=== PATIENT | male | born 1955 | race Caucasian/White ===

== ENCOUNTER 2017-03-02 21:20 | Inpatient (IN) | payer MEDICARE, MEDICAID ==
[~2017-03-02] VITALS: Ht 175.3 cm; Wt 73.5 kg
--- NOTE | 2017-03-02 21:20 | NUR ---
Patient was BIBA at this time.
[2017-03-02 21:26] VITALS: BP 104/68
--- NOTE | 2017-03-02 21:45 | NUR ---
61Y/ M PT. AGUSTÍN FROM [facility] FOR FEVER 99.9, NOW 98.1, DECREASE O2SAT LOW 90, NOW 96%, AND CONGESTION . HX: DEMENTIA AND SEIZURE. AAO X1 TO SELF, UNABLE TO AMBULATE. RESPIRATIONS BILATERAL LUNGS SLIGHLY RHONCHI. SKIN WARM AND DRY. NO C/O PAIN AT THIS TIME. BED SIDERAILS UP. BED AT LOWEST POSITION. VSS, NO S/SX OF DISTRESS. ER MD MADE AWARE OF PT. STATUS.
--- NOTE | 2017-03-02 21:49 | NUR ---
Patient taken to bed 03 via gurney per EMS.
--- NOTE | 2017-03-02 22:18 | NUR ---
PA student at bedside to evaluate patient.
--- NOTE | 2017-03-02 22:27 | NUR ---
Dr. Hernandez evaluating patient at bedside.
[2017-03-02] MEDS ORDERED: NACL 0.9% 2,000 ML IV ONE (22:35)
--- NOTE | 2017-03-03 01:00 | NUR ---
Patient appears to be resting comfortably in bed. Vital Signs within normal limits. Respirations even and unlabored.
[2017-03-03] MEDS ORDERED: ACETAMINOPHEN 325 MG TAB PO PRN (01:15)
[2017-03-03] MEDS ORDERED: HYDROcodone/APAP 5/325 MG 1 TAB TAB PO PRN (01:15)
[2017-03-03] MEDS ORDERED: ONDANSETRON 4 MG/2 ML VIAL IVP PRN (01:15)
[2017-03-03] MEDS ORDERED: cefTRIAXone 1,000 MG VIAL ONE (01:31)
[2017-03-03 01:55] VITALS: BP 141/70
--- NOTE | 2017-03-03 01:55 | NUR ---
RECEIVED PT FROM ER VIA JASVIR, INITIAL ASSESSMENT STARTED, PT IS AAOX1, CONFUSED, UNABLE TO FOLLOW COMMANDS AND MAKE NEEDS KNOWN. FLACC 0. NO S/S OF SOB/DISTRESS NOTED, BREATHING EVEN AND UNLABORED, RHONCHI LUNG SOUNDS, ON RA. NO S/S OF CHEST PAIN, SR ON SOURCING ANALYST, SOFT ABDOMEN WITH ACTIVE BOWEL SOUNDS, INCONTINENT WITH B&B'S. AFEBRILE, SKIN IS WARM AND DRY TO TOUCH, SACRAL REDNESS NOTED, PICTURE TAKEN, GENERALIZED WEAKNESS TO ALL EXTREMITIES, IV TO LEFT FOREARM 20GA, INTACT AND PATENT, SL. VSS. PLACED PT ON SAFETY PRECAUTION WITH BED IN LOW POSITION, CALL LIGHT WITHIN REACH, WILL CONTINUE TO MONITOR.
[2017-03-03] MEDS: NACL 0.9% 1,000 ML IV SCH ×3 (02:00→20:17)
--- NOTE | 2017-03-03 02:00 | NUR ---
Patient will be admitted to care of [facility]. Admited to ICU 3. Will go to roOM 2. Belongings list completed. Report to STEPHANI VERMA.
[2017-03-03 04:00] VITALS: BP 141/55
--- NOTE | 2017-03-03 04:00 | NUR ---
PT'S O2 DROPPED TO 88%, PUT ON O2 AT 2L VIA NC, O2 SAT INCREASED TO 95%. POSITION CHANGED FOR OFFLOAD PRESSURE.
--- NOTE | 2017-03-03 05:26 | NUR ---
PT STARTS SHAKING, TEMP 101.9F, HR 136, TYLENOL GIVEN, WILL REASSESS IN 15 MINS.
--- NOTE | 2017-03-03 05:52 | NUR ---
RECHECK PT, TEMP 100.2F, HR 130, BP 154/73, RR 15, O2 SAT 91 %, SHAKING STOPPED, WILL CONTINUE TO MONITOR.
--- NOTE | 2017-03-03 06:15 | NUR ---
CALLED PT'S YADIEL APODACA TO CLARIFY IF SHE STILL WANT TO PUT PATIENT ON DNR, CONFIRMED WITH DNR STATUS.
--- NOTE | 2017-03-03 06:20 | NUR ---
PAGED DR. PARKER REGARDING PT'S CODE STATUS, AND CURRENTLY CONDITION WITH HR 135, TEMP 100.2F, DR. PARKER WILL PUT NEW ORDER IN, AND CAME TO SEE PATIENT.
[2017-03-03] MEDS ORDERED: DILTIAZEM 25 MG/5 ML VIAL IVP ONE (06:25)
[2017-03-03] MEDS ORDERED: NACL 0.9% 1,000 ML IV ONE (06:25)
--- NOTE | 2017-03-03 06:30 | NUR ---
CARDIZEM GIVEN ORDERED, WILL CONTINUE TO MONITOR FOR HR.
[2017-03-03] MEDS ORDERED: LORazepam 2 MG/ML VIAL IVP SCH (06:40)
[2017-03-03] MEDS ORDERED: ALBUTEROL SULFATE/IPRATROPIU 3 ML SOL IH PRN ×2 (07:10→07:35)
--- NOTE | 2017-03-03 07:15 | NUR ---
REPORT GIVEN TO VIC RN AT BEDSIDE FOR CONTINUE OF CARE. PT'S HR 113, TEMP 99.8F.
--- NOTE | 2017-03-03 07:30 | NUR ---
RECEIVED PT FROM LUCI STYLES. PT DOES NOT OPEN EYES, UNABLE TO FOLLOW COMMANDS.MUMBLING. BEDSIDE MONITOR SHOWS ST. PT ON O2 NC 2L/MIN, NO S/S OF RESPIRATORY DISTRESS NOTED. LUNG SOUNDS CLEAR. ABDOMEN SOFT , NONTENDER WITH HYPOACTIVE BOWEL SOUNDS. WEAKNESS TO ALL EXTREMITIES, IV TO LEFT FA # 20 RUNNING 0.9 NS AT 80 ML/HR. HOB ELEVATED 30 DEGREES WITH LOW BED POSITION. REORIENTED PT UNIT ENVIRONMENT. CALL LIGHT IN REACH, WILL CONTINUE TO MONITOR.
--- NOTE | 2017-03-03 07:30 | NUR ---
PT NOTED TO HAVE DIARRHEA AND VOIDED ON THIEN. JUDIE CARE GIVEN. LINENS CHANGED. RETURN PT TO COMFORTABLE POSITION
--- NOTE | 2017-03-03 07:40 | NUR ---
IN TO ASSESS PT.UPDATED PT CONDITION. PER . INSERT NG TUBE. WILL CARRY OUT THIS ORDER.
[2017-03-03 08:00] VITALS: BP 151/89
--- NOTE | 2017-03-03 08:30 | NUR ---
AT BEDSIDE TO SEE PT. ALL QUESTION ANSWERED
--- NOTE | 2017-03-03 08:35 | NUR ---
NG TUBE #14 INSERTED TO RIGHT NARES, ASPIRATED 10 ML LIGHT BROWN GASTRIC CONTENT .TWO RNS VERIFIED PLACEMENT. PT NPO, USE NG FOR MEDICATION ONLY PER DR. PARKER.
[2017-03-03] MEDS ORDERED: NACL 0.9% 1,000 ML IV SCH (08:40)
[2017-03-03] MEDS: PANTOPRAZOLE 40 MG INJ VIAL IVP SCH (08:49)
[2017-03-03] MEDS: LACTOBACILLUS RHAMNOSUS GG 1 EACH CAP PO SCH (08:50)
[2017-03-03] MEDS: DILTIAZEM 30 MG TAB PO SCH ×3 (08:50→17:00)
[2017-03-03] MEDS ORDERED: DOCUSATE SODIUM 100 MG GELCAP PO SCH (09:00)
--- NOTE | 2017-03-03 09:17 | NUR ---
PATIENT HAS BEEN SCREENED AND CATEGORIZED HIGH NUTRITION RISK. PATIENT WILL BE SEEN WITHIN 1-2 DAYS OF ADMISSION. 03/03/17-03/04/[address]
--- NOTE | 2017-03-03 10:15 | NUR ---
TECH AT BEDSIDE TO DO ECHO
--- NOTE | 2017-03-03 11:00 | NUR ---
WOUND RN AT BEDSIDE TO ASSESS. WILL F/U WITH ORDERS
--- NOTE | 2017-03-03 11:15 | NUR ---
PT O2 SAT DROPPED TO 70S. PT APPEARS TO BE IN NO DISTRESS. APPEARS TO BE MOUTH BREATHER. NOTIFIED RT. PT STAT RAISE BACK UP TO 90S WITH NO INTERVENTION WHEN PT WOKE UP. WILL NOTIFY RT OF ASSESSMENT
--- NOTE | 2017-03-03 11:20 | NUR ---
WOUND CARE EVALUATION NOTES: REASON FOR EVALUATION: SACRAL REDNESS COMPLETE SKIN ASSESSMENT DONE ON THIS 61 Y/O MALE PATIENT [facility] TO [facility], WITH INITIAL DIAGNOSIS OF URINARY TRACT INFECTION. PAST MEDICAL HISTORY INCLUDE ALZHEIMER'S DEMENTIA, DYSPHAGIA AND MUSCLE WEAKNESS. ALL ABOVE INFORMATION WAS OBTAINED FROM THE ADMISSION H&P. LABS ARE WBC 8.6, H/H 13.5/41.2, GLUCOSE 102 AND ALBUMIN 3.1. CURRENT MEDS INCLUDE CEFTRIAXONE, ATIVAN AND NORCO. PATIENT IS LETHARGIC AT THIS TIME, NON VERBAL AND UNABLE TO FOLLOW SIMPLE COMMAND. ON 02 PER NASAL CANNULA. SKIN WARM TO TOUCH WNL, TOENAILS WNL, NO EDEMA, WITH FINE HAIR GROWTH AND +3 BILATERAL PEDAL PULSES. URINE AND BOWEL INCONTINENT. NEEDS MAX ASSISTANCE IN TURNING. INITIAL PLAN OF CARE AND PRESSURE PREVENTIVE MEASURES DISCUSSED WITH PATIENT'S YADIEL, ABLE TO VERBALIZE UNDERSTANDING. INTEGUMENTARY: LEFT BUTTOCK - ST II RIGHT BUTTOCK - ST II PERIAREA - RED AND MOIST DUE TO URINE AND BOWEL INCONTINENCE BILATERAL HEELS BLANCHABLE REDNESS RECOMMENDATIONS: 03/03/17 1130 -CLEANSE R/L BUTTOCKS AND PERIAREA WITH MILD SOAP AND WATER, PAT DRY, APPLY Z GUARD BIDWC AND PRN WITH SOILING. LEAVE OPEN TO AIR -PAINT BILATERAL HEELS WITH SKIN PREP WIPES BIDWC AND LEAVE OPEN TO AIR -TURN AND REPOSITION PATIENT Q2H TO LEFT AND RIGHT SIDE ONLY TO OFFLOAD SACRALCOCCYX AND BILATERAL BUTTOCKS -ASSESS AND MONITOR SKIN CONDITION DURING POSITION CHANGE, PLEASE PAY PARTICULAR ATTENTION TO SACRALCOCCYX, ELBOWS AND HEELS -OFFLOAD BILATERAL HEELS BY PLACING PILLOWS UNDER CALVES AT ALL TIMES, UNLESS OTHERWISE CONTRAINDICATED -KEEP SKIN CLEAN AND DRY AT ALL TIMES. RECOMMENDATIONS DISCUSSED WITH PRIMARY RN AND RESIDENT PHYSICIAN, DR. HOPKINS. WILL FOLLOW UP PATIENT Q 7 DAYS AND PRN. PLEASE CONTACT [facility] FOR ANY CONCERNS, QUESTIONS AND CHANGES IN SKIN CONDITION.
--- NOTE | 2017-03-03 11:30 | NUR ---
ST AT BEDSIDE FOR SWALLOW EVAL. WILL F/U
[2017-03-03] MEDS: ALBUTEROL SULFATE/IPRATROPIU 3 ML SOL IH SCH ×4 (11:34→23:24)
--- NOTE | 2017-03-03 11:48 | NUR ---
SOBIA NOTE SPOKE WITH SOBIA ONEIL PH# [phone] AND SHE SAID REVIEWS SHOULD GO TO [facility] ONLY AND THAT PATIENT SHOULD BE SEEN BY [facility]. SENT INITIAL REVIEW TO [facility] FAX# [phone] THAD PH# [phone]. SOBIA KAUFMAN.
--- NOTE | 2017-03-03 11:53 | NUR ---
SODA DRIER FEEDER note (bedside swallow evaluation completed, please see report for details) [id number]. Bedside swallow evaluation completed, please see report for details. SODA DRIER FEEDER provided education regarding purpose of evaluation and rationale for recommendations to pt and pt's spouse (at bedside). Pt's spouse verbalized understanding. Pt did not appear to benefit from education provided. Recommend: 1) strict NPO (oral cares only) 2) consider alternative method(s) of nutrition/hydration/medication vs comfort measures, as appropriate 3) SODA DRIER FEEDER to f/u for continued assessment of pt's ability to take PO safely (2-3 x week for 2 weeks as pt willing/able to participate safely), as appropriate G-codes: [id number] [id number] [facility] NOMS level 1. PVE for discussion with RNs prior to and following evaluation completion.
[2017-03-03 12:00] VITALS: BP 89/55
--- NOTE | 2017-03-03 12:42 | NUR ---
03/03/17 RD INITIAL ASSESSMENT COMPLETED PLEASE REFER TO NUTRITION ASSESSMENT UNDER CARE ACTIVITY FOR ESTIMATED NUTRITIONAL NEEDS. 1. RECOMMEND WHEN MEDICALLY FEASIBLE, RESUME ORAL DIET: REGULAR WITH TEXTURE PER ST RECOMMENDATIONS 2. RD TO FOLLOW-UP 2-3 DAYS; HIGH RISK SOFIA DAY RD
[2017-03-03] MEDS ORDERED: Z-GUARD PASTE TP SCH (13:00)
[2017-03-03] MEDS ORDERED: Z-GUARD PASTE TP PRN (13:00)
[2017-03-03] MEDS ORDERED: PROBIOTIC SCREEN 1 EA MISC MC PRN (13:00)
--- NOTE | 2017-03-03 13:30 | NUR ---
NOTIFY RT OF PERSISTENT O2 SAT IN THE 70S. INCREASED O2 TO 4 L, AWAITING RT TO ASSESS
[2017-03-03] MEDS ORDERED: MELATONIN3 MG PO (13:43)
[2017-03-03] MEDS ORDERED: NAMENDA10 MG PO (13:43)
[2017-03-03] MEDS ORDERED: TYLENOL325 M1 PO (13:43)
[2017-03-03] MEDS ORDERED: MILK OF MA400 MG/5 M PO (13:43)
[2017-03-03] MEDS ORDERED: MULTI VITAMIN W PO (13:43)
[2017-03-03] MEDS ORDERED: DOCUSATE SODIU PO (13:43)
[2017-03-03] MEDS ORDERED: LACTULOSE10 GM/152 PO (13:43)
[2017-03-03] MEDS ORDERED: KLONOPIN0.5 MG PO (13:43)
--- NOTE | 2017-03-03 13:49 | NUR ---
PULSE OX CHANGED, WHEN ADEQUATE WAVEFORM IS SHOWING SPO2 95-96% ON 4L NASAL CANNULA. NO SIGNS OF SOB OR RESPIRATORY DISTRESS NOTED. NO CYANOSIS NOTED. WILL CONTINUE TO MONITOR.
--- NOTE | 2017-03-03 14:00 | NUR ---
PT AT BEDSIDE FOR EVALUATION, WILL F/U WITH ORDER
--- NOTE | 2017-03-03 14:27 | NUR ---
[address] LY THAT PER THAD AT [facility] DR LY TO ASSUME CARE OF PT. DR PARKER AWARE OF PENDING TRANSFER OF SERVICE TO [facility] TOMORROW.
[2017-03-03 16:00] VITALS: BP 97/54
--- NOTE | 2017-03-03 16:00 | NUR ---
NOTED TO HAVE LARGE AMOUNT OF URINE AND DIARRHEA. FOURTH ROUND OF DIARRHEA THIS SHIFT. BROWNISH GREEN LIQUID STOOL NOTED. JUDIE CARE GIVEN. BEDSHEETS CHANGED. PT RETURN TO PROPER ALIGNMENT. PT RESTING COMFORTABLY.
--- NOTE | 2017-03-03 17:00 | NUR ---
PT'S AT BEDSIDE. UPDATED WITH PROGRESS. ALL QUESTIONS ANSWERED.
--- NOTE | 2017-03-03 17:05 | NUR ---
BP MEDICATION HELD D/T LOW BP. 88/65. WILL CONTINUE TO MONITOR
--- NOTE | 2017-03-03 19:00 | NUR ---
RECEIVED PT AWAKE ON A BED FROM ICU NURSES ACCOMPANIED BY , PT IS CONFUSED, WITH O2 VIA NC AT 4LPM, ON TELE MONITORING, WITH SCDS ON, IV AT LEFT FOREARM 20G INFUSING FLUIDS WELL. WITH NGT AT RIGHT NARES. TRANSFERRED PT TO WOUND CARE BED AT ROOM 123A. ENDORSED PT TO STEPHANI ZAMARRIPA IN STABLE CONDITION.
--- NOTE | 2017-03-03 19:25 | NUR ---
RECEIVED REPORT FROM DAY SHIFT NURSE. PT IS AWAKE, CONFUSED, AT BEDSIDE, FLACC 0. ON NASAL CANNULA AT 4LPM, HAS NO S/S OF RESPIRATORY DISTRESS/DISCOMFORT NOTED. ON WOUND BED CARE. IV SITE IS PATENT AND INTACT. RIGHT NARE NGT NOTED. PLAN OF CARE DISCUSSED, UNABLE TO VERBALIZE UNDERSTANDING. SAFETY MEASURES CHECKED, CALL LIGHT WITHIN REACH. WILL CONTINUE TO MONITOR
[2017-03-03 20:00] VITALS: BP 93/65
--- NOTE | 2017-03-03 20:00 | NUR ---
REPOSITIONED THE PATIENT. V/S CHECKED AND STABLE. CALL LIGHT WITHIN REACH.
--- NOTE | 2017-03-03 22:00 | NUR ---
REPOSITIONED THE PATIENT. NOT IN DISTRESS. SAT O2= 94%. NO SOB NOTED.
[2017-03-04] VITALS: BP 153/94
--- NOTE | 2017-03-04 | NUR ---
V/S CHECKED AND STABLE, FLACC-0, NO S/S OF RESPIRATORY DISTRESS/DISCOMFORT NOTED.
[2017-03-04] MEDS: Z-GUARD PASTE TP SCH ×2 (01:21→13:00)
--- NOTE | 2017-03-04 02:28 | NUR ---
EYES CLOSED, BREATHING EVEN AND UNLABORED. ON NASAL CANNULA, HAS NO S/S OF RESPIRATORY DISTRESS/DISCOMFORT NOTED.
[2017-03-04] MEDS: ALBUTEROL SULFATE/IPRATROPIU 3 ML SOL IH SCH ×6 (03:31→23:16)
[2017-03-04 04:00] VITALS: BP 147/65
--- NOTE | 2017-03-04 04:00 | NUR ---
V/S CHECKED AND STABLE. STA O2 MAINTAINED TO > 92%. NO DISTRESS NOTED. CALL LIGHT WITHIN REACH. IV FLUID INFUSING WELL.
[2017-03-04] MEDS: NACL 0.9% 1,000 ML IV SCH ×3 (04:59→20:04)
--- NOTE | 2017-03-04 05:53 | NUR ---
LOOSE BOWEL MOVEMENT NOTED. LINEN CHANGED. GOWN CHANGED. AM CARE DONE. REPOSITIONED THE PT. NO DISTRESS NOTED. MAINTAINED SAT O2 >92%.
--- NOTE | 2017-03-04 07:27 | NUR ---
REPORT GIVEN TO DAY SHIFT NURSE FOR CONTINUITY OF CARE. PT IN STABLE CONDITION.
--- NOTE | 2017-03-04 07:29 | NUR ---
RECEIVED REPORT FROM NIGHT RN. PT RESTING IN BED. NO S/S OF ACUTE DISTRESS. AAOX1. IV SITE PATENT AND INTACT. NG-TUBE NOTED TO RIGHT NARE PATENT. FLACC-0. ON O2 4L NC. REDNESS NOTED TO HEELS AND BUTTOCKS. CALL LIGHT WITHIN REACH. SAFETY MEASURES ENSURED. WILL CONTINUE TO MONITOR.
[2017-03-04 08:00] VITALS: BP 99/53
[2017-03-04] MEDS: DILTIAZEM 30 MG TAB PO SCH (09:00)
[2017-03-04] MEDS: PANTOPRAZOLE 40 MG INJ VIAL IVP SCH (09:46)
[2017-03-04] MEDS: LACTOBACILLUS RHAMNOSUS GG 1 EACH CAP PO SCH (09:46)
--- NOTE | 2017-03-04 09:57 | NUR ---
PT PULLING OFF NASAL CANNULA AND TUGGING AT NG-TUBE. PLACEMENT VERIFIED WITH AUSCULTATION. MITTENS PLACED ON PATIENTS. COLACE HELD DUE TO PT'S INABILITY TO SWALLOW. CALL LIGHT WITHIN REACH. SAFETY MEASURES ENSURED. WILL CONTINUE TO MONITOR.
--- NOTE | 2017-03-04 11:58 | NUR ---
PT RESTING IN BED. NO S/S OF ACUTE DISTRESS. ON O2 4L NC. FLACC-0. NG-TUBE NOTED TO RIGHT NARE. CALL LIGHT WITHIN REACH. SAFETY MEASURES ENSURED. WILL CONTINUE TO MONITOR.
[2017-03-04 11:59] VITALS: BP 105/68
--- NOTE | 2017-03-04 13:47 | NUR ---
CM NOTE CONCURRENT REVIEW SENT TO [facility] FAX# [phone] THAD # [phone]
--- NOTE | 2017-03-04 14:25 | NUR ---
PT HAD SMALL LOOSE BOWEL MOVEMENT. PT CLEANED AND Z-GUARD APPLIED. NO S/S OF ACUTE DISTRESS. FLACC-0. CALL LIGHT WITHIN REACH. SAFETY MEASURES ENSURED. WILL CONTINUE TO MONITOR.
[2017-03-04 16:00] VITALS: BP 99/72
--- NOTE | 2017-03-04 16:23 | NUR ---
* ST TX NOTE * Pt seen at bedside with nursing present. Pt tolerating 3/3 alternating PO trials of 3-5 CCs of puree apple sauce via a teaspoon w/out s/s of aspiration. Pt also tolerating 2/3 alternating PO trials of honey-thickened apple juice 3-5 CCs at a time via a teaspoon w/out s/s of aspiration, but pt exhibiting cough immediately after 3rd trial, concluding therapeutic feeding trials at this time. Pt unable to answer simple questions at this time, appearing alert but oriented x0. Pt also unable to follow 1-step skilled instructions but follows through with rote automatic tasks such as opening oral cavity during pre-oral phase of swallow, and exhibiting AP bolus transit WFL as well as adequate laryngeal elevation and excursion. Pt and caregiver/nursing education completed regarding results of treatment, aspiration precaution pt and caregiver training and prognosis for improvement following at least 1-2 more txs in the next 1-2 weeks, with pt indifferent and caregiver/nursing agreeable with and verbalizing understanding of clinician's recommendations. ST to follow up x1-2 days in next 1-2 weeks. G8997 CL NOMS Level 5 Time In/Out 16:00 - 16:30
--- NOTE | 2017-03-04 17:24 | NUR ---
PT RESTING IN BED. NO S/S OF ACUTE DISTRESS. FLACC-0. PT'S FAMILY AT BEDSIDE. CALL LIGHT WITHIN REACH. SAFETY MEASURES ENSURED. WILL CONTINUE TO MONITOR.
--- NOTE | 2017-03-04 19:14 | NUR ---
ENDORSED PLAN OF CARE TO NIGHT RN. PT REMAINS IN STABLE CONDITION.
--- NOTE | 2017-03-04 19:30 | NUR ---
RECEIVED REPORT FROM XAVIER STYLES AT BEDSIDE. PT IS UNABLE TO SPEAK CLEARLY. HE JUST MUMBLING. INITIAL ASSESSMENT DONE. NO S/S OF RESPIRATORY DISTRESS OR SOB NOTED. ON O2 @ 2L/MIN VIA NASAL CANULA. PT HAS NG-TUBE ON THE RIGHT NARE FOR MEDICATION ONLY. PLACEMENT AND PATENCY ARE CONFIRMED. NO S/S OF PAIN OR ANY DISCOMFORT AT THIS TIME. PLAN OF CARE REVIEWED TO PT BUT UNABLE TO COMPREHEND. CALL LIGHT WITHIN REACH. WILL CONTINUE TO MONITOR.
[2017-03-04 20:00] VITALS: BP 108/73
[2017-03-05] VITALS: BP 122/63
--- NOTE | 2017-03-05 00:30 | NUR ---
PT IS SLEEPING RIGHT NOW BUT EASILY AROUSABLE. NO S/S OF ANY DISCOMFORT AT THIS TIME. ALL NEEDS ARE ATTENDED. CALL LIGHT WITHIN REACH. WILL CONTINUE TO MONITOR.
[2017-03-05] MEDS: Z-GUARD PASTE TP SCH ×2 (01:39→12:24)
[2017-03-05] MEDS: ALBUTEROL SULFATE/IPRATROPIU 3 ML SOL IH SCH ×6 (03:18→23:34)
[2017-03-05 04:00] VITALS: BP 110/67
[2017-03-05] MEDS: NACL 0.9% 1,000 ML IV SCH ×3 (05:25→17:56)
--- NOTE | 2017-03-05 05:30 | NUR ---
AM CARE RENDERED. BED LINEN CHANGED. REPOSITIONED PATIENT. KEPT CLEAN AND DRStone CALL LIGHT WITHIN REACH. WILL CONTINUE TO MONITOR.
--- NOTE | 2017-03-05 07:20 | NUR ---
PT HAS NO S/S OF ANY DISCOMFORT. PLAN OF CARE ENDORSED TO AM SHIFT NURSE FOR CONTINUITY OF CARE.
--- NOTE | 2017-03-05 07:22 | NUR ---
RECEIVED REPORT FROM NIGHT RN. PT RESTING IN BED. AAOX1. NO S/S OF ACUTE DISTRESS. FLACC-0. IV SITE PATENT AND INTACT. NG-TUBE NOTED TO RIGHT NARE. REDNESS NOTED TO BUTTOCKS AND HEELS. CALL LIGHT WITHIN REACH. SAFETY MEASURES ENSURED. WILL CONTINUE TO MONITOR.
[2017-03-05 07:56] VITALS: BP 109/69
[2017-03-05] MEDS: PANTOPRAZOLE 40 MG INJ VIAL IVP SCH (09:21)
[2017-03-05] MEDS: LACTOBACILLUS RHAMNOSUS GG 1 EACH CAP PO SCH (09:21)
--- NOTE | 2017-03-05 09:33 | NUR ---
NG-TUBE REMOVED PER DR. LY. PT TOLERATED WELL. NO S/S OF ACUTE DISTRESS. FLACC-0. PT TOLERATED AM MEDS WELL.
[2017-03-05] MEDS ORDERED: POTASSIUM CHLORIDE 40 MEQ, LIDOCAINE 1% 25 MG in NACL 0.9% 250 ML IV SCH (10:00)
[2017-03-05] MEDS ORDERED: MAGNESIUM HYDROXIDE 2400 MG/30 ML UDC PO PRN (10:25)
--- NOTE | 2017-03-05 10:53 | NUR ---
TELE MONITOR REMOVED. AT BEDSIDE.
--- NOTE | 2017-03-05 12:09 | NUR ---
CM NOTE CM NOTE CONCURRENT REVIEW SENT TO [facility] FAX# [phone] THAD # [phone]
--- NOTE | 2017-03-05 13:15 | NUR ---
03/05/17 RD FOLLOW-UP ASSESSMENT COMPLETED PLEASE REFER TO NUTRITION ASSESSMENT UNDER CARE ACTIVITY FOR ESTIMATED NUTRITIONAL NEEDS. 1. WHEN MEDICALLY FEASIBLE, INITIATE ORAL DIET: REGULAR WITH TEXTURE PER ST RECOMMENDATIONS 2. RD TO FOLLOW-UP 2-3 DAYS; HIGH RISK SOFIA DAY RD
--- NOTE | 2017-03-05 14:58 | NUR ---
PT RESTING IN BED. NO S/S OF ACUTE DISTRESS. FLACC-0. CALL LIGHT WITHIN REACH. SAFETY MEASURES ENSURED. WILL CONTINUE TO MONITOR.
[2017-03-05 16:00] VITALS: BP 132/56
--- NOTE | 2017-03-05 16:38 | NUR ---
PT RESTING IN BED. NO S/S OF ACUTE DISTRESS. FLACC-0. CALL LIGHT WITHIN REACH. SAFETY MEASURES ENSURED. WILL CONTINUE TO MONITOR.
--- NOTE | 2017-03-05 17:22 | NUR ---
* ST D/C NOTE * Pt seen at bedside with pt alert and passively cooperative. Pt is nonverbal and reporting no c/o pain at this time, and exhibiting no facial grimacing or indications of pain. Pt tolerating 5/5 alternating PO trials of puree apple sauce 4-5 CCs at a time via a spoon w/out s/s of aspiration. Pt also tolerating 5/5 alternating PO trials of honey-thickened apple juice 4-5 CCs at a time via a spoon w/out s/s of aspiration. Pt's NGT was also removed earlier today. Pt and caregiver/nursing education completed regarding recommendations upon pt's D/C from skilled FOUNDRY TENDER services, with pt being deemed safe for PO intake of puree textures and honey-thickened liquids following today's skilled FOUNDRY TENDER treatment session, especially considering pt's NGT was DCed and removed today with pt indifferent to clinician's remarks but with caregiver/nursing agreeable with and verbalizing understanding of clinician's recommendations. No further ST follow up recommended at this time. Pt and caregiver/nursing education thus completed regarding results of treatment; benefits of abiding by recommended PO diet consistency and aspiration precautions; and prognosis for improvement; with pt indifferent to clinician's recommendations but with caregiver/nsg agreeable with and verbalizing understanding of clinician's recommendations. Recommend: - PO diet consistency of Puree textures with Honey-thickened liquids for all meals - CLOSE supervision during PO intake by caregivers/staff to assure STRICT aspiration precautions are in place - Pt requires total assist with feeding - Suction PRN - D/C pt from skilled FOUNDRY TENDER services secondary to pt achieving maximal potential at this time No further ST follow up recommended at this time. G8997 CJ G8998 CJ NOMS Level 3 Time In/Out 16:55 - 17:25
--- NOTE | 2017-03-05 19:20 | NUR ---
ENDORSED PLAN OF CARE TO NIGHT RN. PT REMAINS IN STABLE CONDITION.
--- NOTE | 2017-03-05 19:30 | NUR ---
RECEIVED PT IN STABLE CONDITION FROM AM NURSE. AWAKE BUT CONFUSED. MED SURG PT. WITH NO ACUTE DISTRESS NOTED. O2 SAT 94% ON RA. BEDBOUND. WITH IVF INFUSING WELL ON THE LT FA#20. CLEAR AND PATENT. WITH GARIMA HEEL , SACRAL REDNESS AND GARIMA BUTTOCKS WITH PRESSURE ULCER. REPOSITIONED FOR COMFORT. BED ON LOW POSITION, SIDE RAILS UP X2. FREQUENT ROUNDS NEEDED. WILL CONTINUE TO MONITOR.
[2017-03-05] MEDS: MEMANTINE 10 MG TAB PO SCH (20:37)
--- NOTE | 2017-03-05 22:30 | NUR ---
REPOSITIONED FOR COMFORT . VOIDED A LOT . GARIMA BUTTOCKS CLEANED AND KEPT DRY , APPLIED Z GUARD.
[2017-03-06 00:10] VITALS: BP 113/70
[2017-03-06] MEDS: Z-GUARD PASTE TP SCH ×2 (01:00→11:27)
--- NOTE | 2017-03-06 02:30 | NUR ---
PT SLEEPING AT THIS TIME. NO SOB NOTED. O2 SAT 94%
[2017-03-06] MEDS: ALBUTEROL SULFATE/IPRATROPIU 3 ML SOL IH SCH ×4 (03:52→15:36)
--- NOTE | 2017-03-06 04:30 | NUR ---
REPOSITIONED FOR COMFORT. PT ALWAYS REMOVED O2NC. PUT BACK O2 SAT ONLY ON THE 88-89%. NEW PULSE OX ADAPTOR. CALLED RT TO CHECK. .
[2017-03-06] MEDS: NACL 0.9% 1,000 ML IV SCH ×3 (04:42→14:40)
--- NOTE | 2017-03-06 05:15 | NUR ---
O2 SAT THIS TIME 94% WITH O22L/NC.. NO RESPIRATORY DISTRESS NOTED.
--- NOTE | 2017-03-06 06:30 | NUR ---
PT IN STABLE CONDITION WITH O22L/NC. O2 SAT 94%.
--- NOTE | 2017-03-06 07:48 | NUR ---
ENDORSED PT IN STABLE CONDITION TO AM NURSE.
--- NOTE | 2017-03-06 07:49 | NUR ---
PT AWAKE AND ALERT X1 TO SELF, NO SIGNS OF ACUTE DISTRESS, BREATHING EVEN AND UNLABORED BILATERALLY ON OXYGEN 2L VIA NC, BOWEL SOUNDS PRESENT IN ALL FOUR QUADRANTS, NO ABDOMINAL DISTENTION, BLADDER AND BOWEL INCONTINENCE, PRESSURE ULCER ON BILATERAL BUTTOCKS WITH BILATERAL HEELS AND SACRUM REDNESS, FLACC SCORE 0, BEDFAST OFFLOAD TO PRESSURE AREAS AND BONY PROMINENCES, IV PATENT NO REDNESS AROUND SITE, BED IN LOW POSITION WITH BILATERAL HALF SIDE RAILS UP, CALL LIGHT WITHIN REACH.
[2017-03-06 08:00] VITALS: BP 113/68
[2017-03-06] MEDS: PANTOPRAZOLE 40 MG INJ VIAL IVP SCH (09:48)
[2017-03-06] MEDS: LACTOBACILLUS RHAMNOSUS GG 1 EACH CAP PO SCH (09:48)
[2017-03-06] MEDS: MEMANTINE 10 MG TAB PO SCH (09:48)
--- NOTE | 2017-03-06 10:00 | NUR ---
PATIENT ON ROOM AIR, TOLERATING WELL 92% OXYGEN SATURATION.
--- NOTE | 2017-03-06 11:04 | NUR ---
CM NOTE CONCURRENT REVIEW SENT TO [facility] FAX# [phone] THAD # [phone]
--- NOTE | 2017-03-06 11:28 | NUR ---
PATIENT OFF SUPPLEMENTAL OXYGEN PRIOR TO [facility] THERAPY BETO/RN AWARE POSSIBLE DISCHARGE TODAY
[2017-03-06] MEDS ORDERED: CIPRO500 MG PO (11:29)
--- NOTE | 2017-03-06 11:29 | NUR ---
WAS SEEN BY DR. LY RECEIVED ORDER MAY D/C BACK TO SNF WHEN BED IS AVAILABLE. NOTED AND WILL CARRY OUT.
[2017-03-06] MEDS ORDERED: clonazePAM 0.5 MG TAB PO SCH (12:00)
--- NOTE | 2017-03-06 12:23 | NUR ---
SS NOTE: PER PUNEET FROM [facility] ([phone]), PT CAN GO TO ROOM 111C UNDER DR. HEATH ANYTIME. SOBIA KAUFMAN.
--- NOTE | 2017-03-06 12:46 | NUR ---
CM NOTE PER CM ANNIE PH# [phone] [facility] AUTH# [id number]. SPOKE WITH MONIQUE OF [facility] PH# [phone] TO SET UP [facility] SPECIALIST TIME 1530, NUMBER TO CALL FOR RE[ORT PH# [phone]. CHARGE NURSE WILLEM EXT [phone] NURSE BETO EXT [phone] AWARE.
[2017-03-06 16:15] VITALS: BP 126/65
--- NOTE | 2017-03-06 16:15 | NUR ---
PT ALERT, NO SIGNS OF ACUTE DISTRESS. D/C'D WRIST BANDS AND IV LINES. [facility]. EDUCATED PATIENT ON DISCHARGE INSTRUCTIONS INCLUDING NEW PRESCRIPTIONS AND CONTINUATION OF HOME MEDICATIONS AND SIGNS AND SYMPTOMS OF WORSENING CONDITION AND/OR INFECTION.
[2017-03-06] MEDS ORDERED: CIPROFLOXACIN 250 MG TAB PO SCH (21:00)
== END 2017-03-06 16:15 | DRG 689 ==
LOC: MED 21:20 → MIC 03-03 01:12 → MTU 03-03 18:55
PROVIDERS: ADMIT Hospitalist; ATTEND Hospitalist
DX: N39.0 Urinary tract infection, site not specified (principal); G93.41 Metabolic encephalopathy; E44.0 Moderate protein-calorie malnutrition; F02.81 Dementia in other diseases classified elsewhere, unspecified severity, with behavioral disturbance; G30.9 Alzheimer's disease, unspecified; R13.10 Dysphagia, unspecified; Z66 Do not resuscitate; B96.20 Unspecified Escherichia coli [E. coli] as the cause of diseases classified elsewhere; F10.10 Alcohol abuse, uncomplicated; E83.51 Hypocalcemia; Z88.1 Allergy status to other antibiotic agents; Z68.23 Body mass index [BMI] 23.0-23.9, adult